=== PATIENT | female | born 1985 | race Caucasian/White ===

== ENCOUNTER 2019-11-12 23:08 | Emergency (ER) | payer OTHER ==
[~2019-11-12] VITALS: Ht 165.1 cm; Wt 108.9 kg
[2019-11-12 23:25] VITALS: BP 121/79
--- NOTE | 2019-11-12 23:25 | NUR ---
PT AMBULATED TO ER BED 01
[2019-11-12] MEDS ORDERED: KETOROLAC 30 MG/ML VIAL IVP ONE (23:45)
--- NOTE | 2019-11-13 00:12 | NUR ---
34 Y/O FEMALE PRESENTS TO ER WITH SHARP LLQ PAIN 8/10 X 3 DAYS. LLQ IS TTP. THAT RADIATES TO LEFT LOWER BACK. LMP X 2 YRS AGO. NORPLANT REMOVED 05/2019. DENIES COUGH, SOB, NAUSEA, VOMITING, DIARRHEA, INJURY. R/R EQUAL AND UNLABORED. SIDERAIL X1, WILL CONTINUE TO MONITOR NKDA DENIES PMH
[2019-11-13 00:28] LABS: BASOPHILS # (AUTO) 0.1 K/uL (0.00-0.22); BASOPHILS % (AUTO) 0.6 % (0.0-2.0); EOSINOPHILS # (AUTO) 0.1 K/uL (0-0.4); EOSINOPHILS % (AUTO) 1.4 % (0.0-4.0); HEMATOCRIT 42.3 % (36-48); HEMOGLOBIN 14.2 g/dL (12.0-16.0); LYMPHOCYTES # (AUTO) 2.7 K/uL (2.5-16.5); LYMPHOCYTES % (AUTO) 28.1 % (20.5-51.1); MEAN CORPUSCULAR HEMOGLOBIN 30 pg (27-31); MEAN CORPUSCULAR HGB CONC 34 g/dL (33-37); MEAN CORPUSCULAR VOLUME 89.2 fL (80-94); MONOCYTES # (AUTO) 0.9 K/uL (0.8-1.0); MONOCYTES % (AUTO) 9.8 % (1.7-9.3); NEUTROPHILS # (AUTO) 5.8 K/uL (1.8-7.7); NEUTROPHILS % (AUTO) 60.1 % (42.2-75.2); PLATELET COUNT (AUTO) 262 K/uL (140-450); RED BLOOD CELL COUNT(AUTO) 4.74 MIL/uL (4.20-5.40); WHITE BLOOD COUNT (AUTO) 9.6 K/uL (4.8-10.8)
[2019-11-13 00:45] LABS: ALBUMIN 3.2 g/dL (3.4-5.0); ANION GAP 8.9 (8-16); CARBON DIOXIDE 30.6 mmol/L (21-32); CREATININE 0.9 mg/dL (0.6-1.3); POTASSIUM 3.5 mmol/L (3.5-5.1); TOTAL BILIRUBIN 0.3 mg/dL (0.0-1.0)
[2019-11-13 02:11] VITALS: BP 121/79
--- NOTE | 2019-11-13 02:14 | NUR ---
Patient discharged with v/s stable. Written and verbal after care instructions given and explained. Patient alert, oriented and verbalized understanding of instructions. Ambulatory with steady gait. All questions addressed prior to discharge. ID band removed. Patient advised to follow up with PMD. Rx of MINERAL OIL; MIRALAX; TRAMADOL given. Patient educated on indication of medication including possible reaction and side effects. Opportunity to ask questions provided and answered.
== END 2019-11-13 02:14 | disposition home or self-care (01) ==
LOC: MED 23:08
DX: R10.32 Left lower quadrant pain (principal); R51 Headache
CPT/HCPCS: 36415; 74018; 76856; 80053; 81002; 81025; 85025; 96372; 99285; J1885; Q0092

== ENCOUNTER 2021-05-31 22:48 | Emergency (ER) | payer OTHER ==
[~2021-05-31] VITALS: Ht 165.1 cm; Wt 113.4 kg
[2021-05-31 22:59] VITALS: BP 143/56
--- NOTE | 2021-05-31 23:05 | NUR ---
AMBULATED TO BED FROM TRIAGE
[2021-05-31 23:44] LABS: BASOPHILS # (AUTO) 0.1 K/uL (0.00-0.22); BASOPHILS % (AUTO) 0.7 % (0.0-2.0); EOSINOPHILS # (AUTO) 0.2 K/uL (0-0.4); EOSINOPHILS % (AUTO) 1.9 % (0.0-4.0); HEMATOCRIT 41.1 % (36-48); HEMOGLOBIN 13.9 g/dL (12.0-16.0); LYMPHOCYTES # (AUTO) 3.7 K/uL (2.5-16.5); LYMPHOCYTES % (AUTO) 42.8 % (20.5-51.1); MEAN CORPUSCULAR HEMOGLOBIN 29 pg (27-31); MEAN CORPUSCULAR HGB CONC 34 g/dL (33-37); MEAN CORPUSCULAR VOLUME 86.6 fL (80-94); MONOCYTES # (AUTO) 0.9 K/uL (0.8-1.0); MONOCYTES % (AUTO) 10.1 % (1.7-9.3); NEUTROPHILS # (AUTO) 3.8 K/uL (1.8-7.7); NEUTROPHILS % (AUTO) 44.5 % (42.2-75.2); PLATELET COUNT (AUTO) 268 K/uL (140-450); RED BLOOD CELL COUNT(AUTO) 4.75 MIL/uL (4.20-5.40); WHITE BLOOD COUNT (AUTO) 8.6 K/uL (4.8-10.8)
--- NOTE | 2021-05-31 23:54 | NUR ---
US AT BEDSIDE.
--- NOTE | 2021-05-31 23:55 | NUR ---
35 YO/F BIB SELF W C/O LLQ ABDOMINAL PAIN 8/10 PRESSURE LIKE, CONSTANT, RADIATING TO L BACK SIDE X3 DAYS. + SORE BREASTS X1 WEEK SHARP 6/10 PAIN W/O COLOR, TEXTURE OR OTHER BREAST CHANGES OR ANY DISCHARGE. PT DENIES N/V/D, FEVERS, CHILLS, CONSTIPATION, OR URINARY SYMPTOMS. DENIES KNOWN . ABDOMEN SOFT, TENDER TO TOUCH AT LLQ. PT LAYING SUPINE IN BED W X1 SIDERAIL UP. US AT BEDSIDE FOR PT PROCEDURE. VSS. PATIENT DOES NOT WANT PAIN MEDICATION AT THIS TIME. PMH: APPENDIX REMOVAL 1993 NKA
[2021-06-01] LABS: ALBUMIN 3.5 g/dL (3.4-5.0); ANION GAP 9.6 (8-16); CARBON DIOXIDE 30.8 mmol/L (21-32); CREATININE 0.8 mg/dL (0.6-1.3); POTASSIUM 3.4 mmol/L (3.5-5.1); TOTAL BILIRUBIN 0.6 mg/dL (0.0-1.0)
--- NOTE | 2021-06-01 00:15 | NUR ---
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
[2021-06-01 00:20] LABS: APPEARANCE,URINE CLEAR (CLEAR); BILIRUBIN,URINE NEGATIVE (NEGATIVE); BLOOD, URINE NEGATIVE (NEGATIVE); COLOR,URINE YELLOW (YELLOW); LEUKOCYTE ESTERASE ,URINE NEGATIVE (NEGATIVE); NITRITE, URINE NEGATIVE (NEGATIVE); UGLUCOSE NEGATIVE (NEGATIVE)
--- NOTE | 2021-06-01 01:45 | NUR ---
WET M[place] SAMPLE COLLECTED AT SENT TO LAB.
[2021-06-01] MEDS ORDERED: metroNIDAZOLE 500 MG/NS PREMIX 100 ML IV ONE (01:47)
[2021-06-01] MEDS ORDERED: ED NON STOCK ORDER 1 EA MISC IVP ONE (01:50)
--- NOTE | 2021-06-01 01:53 | NUR ---
PT REPORTS 9/10 PAIN. ERMD MADE AWARE.
[2021-06-01] MEDS ORDERED: NACL 0.9% 1,000 ML IV ONE (01:55)
[2021-06-01] MEDS ORDERED: MORPHINE SULFATE 4 MG/ML SYR IVP ONE (01:55)
[2021-06-01] MEDS ORDERED: METR-435 PO (03:18)
[2021-06-01] MEDS ORDERED: NAPR-54 PO (03:21)
[2021-06-01 03:50] VITALS: BP 123/70
--- NOTE | 2021-06-01 03:50 | NUR ---
Patient discharged with v/s stable. Written and verbal after care instructions given and explained. Patient alert, oriented and verbalized understanding of instructions. Ambulatory with steady gait. All questions addressed prior to discharge. ID band removed. Patient advised to follow up with PMD. Rx of METRONIDAZOLE, NAPROXEN given. Patient educated on indication of medication including possible reaction and side effects. Opportunity to ask questions provided and answered.
== END 2021-06-01 03:50 | disposition home or self-care (01) ==
LOC: MED 22:48
DX: N77.1 Vaginitis, vulvitis and vulvovaginitis in diseases classified elsewhere (principal); N73.9 Female pelvic inflammatory disease, unspecified
CPT/HCPCS: 36415; 76830; 80053; 81003; 85025; 87040; 87210; 96365; 96375; 99284; J2270; J3490; J7030; Q0092

== ENCOUNTER 2022-10-15 04:50 | Emergency (ER) | payer OTHER ==
[~2022-10-15] VITALS: Ht 165.1 cm; Wt 108.9 kg
[~2022-10-15 04:50] MED LIST: METR-435 PO; NAPR-54 PO
[2022-10-15 04:52] VITALS: BP 121/76
--- NOTE | 2022-10-15 04:52 | NUR ---
TO BED AMBULATORY
[2022-10-15 04:55] VITALS: BP 121/76
--- NOTE | 2022-10-15 05:00 | NUR ---
SEEN AND EXAMINED BY LORI
[2022-10-15] MEDS ORDERED: FLONAS NS (05:12)
[2022-10-15] MEDS ORDERED: BENZ200C4 PO (05:12)
[2022-10-15] MEDS ORDERED: METH4TAB1 PO (05:12)
--- NOTE | 2022-10-15 05:20 | NUR ---
Patient discharged with v/s stable. Written and verbal after care instructions given and explained. Patient alert, oriented and verbalized understanding of instructions. Ambulatory with steady gait. All questions addressed prior to discharge. ID band removed. Patient advised to follow up with PMD. Rx of BENZONATATE FLONASE NASAL MEDROL DOSEPAK given. Patient educated on indication of medication including possible reaction and side effects. Opportunity to ask questions provided and answered.
== END 2022-10-15 05:20 | disposition home or self-care (01) ==
LOC: MED 04:50
DX: J06.9 Acute upper respiratory infection, unspecified (principal); H92.03 Otalgia, bilateral
CPT/HCPCS: 99283